=== PATIENT | male | born 1995 | race African-American/Black ===

== ENCOUNTER 2019-07-24 02:11 | Emergency (ER) | payer OTHER, MEDICAID ==
[~2019-07-24] VITALS: Ht 170.2 cm; Wt 50.8 kg
[2019-07-24 02:16] VITALS: BP 113/71
--- NOTE | 2019-07-24 02:22 | NUR ---
PT AMBULATED TO BED #5
[2019-07-24] MEDS ORDERED: IBUPROFEN 800 MG TAB PO ONE (02:30)
[2019-07-24 02:45] VITALS: BP 113/71
--- NOTE | 2019-07-24 02:45 | NUR ---
PATIENT ASSESSMENT COMPLETE. PT SEATED IN BED WITH HOB ELEVATED FOR COMFORT. [id number]. WILL CONTINUE TO MONITOR.
--- NOTE | 2019-07-24 02:55 | NUR ---
PT TAKEN TO [facility] VIA WHEELCHAIR.
--- NOTE | 2019-07-24 03:14 | NUR ---
Dr. Simons examining patient.
== END 2019-07-24 03:19 | disposition home or self-care (01) ==
LOC: MED 02:11
DX: S80.02XA Contusion of left knee, initial encounter (principal); V03.90XA Pedestrian on foot injured in collision with car, pick-up truck or van, unspecified whether traffic or nontraffic accident, initial encounter; Y93.89 Activity, other specified; Y92.89 Other specified places as the place of occurrence of the external cause; Y99.8 Other external cause status
CPT/HCPCS: 73562; 99283; Q0092